=== PATIENT | male | born 1990 | race Caucasian/White ===

== ENCOUNTER 2024-03-07 18:02 | Emergency (ER) | payer OTHER ==
[2024-03-07 18:15] VITALS: BP 111/75; PULSE 84; RESP 18; TEMP 98.4; BMI 31.8
[2024-03-07] MEDS ORDERED: METHOCARBAMOL 500 MG TABLET ONE (19:47)
[2024-03-07] MEDS ORDERED: KETOROLAC TROMETHAMINE 30 MG/1 ML VIAL ONE ×2 (19:48→19:51)
[2024-03-07] MEDS: KETOROLAC TROMETHAMINE 30 MG/1 ML VIAL IM ONE (19:54)
[2024-03-07] MEDS: METHOCARBAMOL 500 MG TABLET PO ONE (19:54)
[2024-03-07 20:24] LABS: URINE APPEARANCE CLEAR; URINE BILIRUBIN NEGATIVE (NEGATIVE); URINE COLOR YELLOW; URINE GLUCOSE (UA) NEGATIVE (NEGATIVE); URINE KETONE NEGATIVE (NEGATIVE); URINE LEUK ESTERASE NEGATIVE (NEGATIVE); URINE NITRITE NEGATIVE (NEGATIVE); URINE PROTEIN NEGATIVE (NEGATIVE); URINE UROBILINOGEN 0.2 mg/dL (0.2-1.0)
[2024-03-07 21:11] LABS: HIV INTERPRETATION NEGATIVE (NEGATIVE)
== END 2024-03-07 20:53 | disposition home or self-care (01) ==
LOC: JERFT 18:02
PROC: 3E0133Z Introduction of Anti-inflammatory into Subcutaneous Tissue, Percutaneous Approach (ICD-10-PCS; principal; 2024-03-07)
DX: R07.89 Other chest pain (principal); M25.512 Pain in left shoulder; R51.9 Headache, unspecified; M54.9 Dorsalgia, unspecified; R53.83 Other fatigue; R06.02 Shortness of breath; Z20.822 Contact with and (suspected) exposure to COVID-19
CPT/HCPCS: 0241U-QW; 36415; 81003; 84484; 86803; 87389; 93005; 93010; 99284-25